=== PATIENT | female | born 1935 | race Caucasian/White ===

== ENCOUNTER 2017-05-15 01:07 | Emergency (ER) | payer MEDICARE, OTHER ==
[2017-05-15 01:25] VITALS: O2SAT 99
[2017-05-15 01:30] VITALS: BP 157/99
[2017-05-15] MEDS ORDERED: LIDOCAINE VISCOUS 2% SOLN 15ML UDC EXT ONE (04:30)
--- NOTE | 2017-05-15 07:37 | REP ---
Portable chest, 01:36 a.m., the patient sitting, single AP view, post intubation: The tip of the endotracheal tube appears to be in the hypopharynx. There are bilateral interstitial and alveolar infiltrates. No pleural effusions. Cardiac size is enlarged. Signed by Joseph Negrete MD 05/15/2017 07:29 A
== END 2017-05-15 04:14 | disposition expired ==
LOC: EDAGE 01:07 → M ED 01:07 → EDBD 01:07 → M ED 04:14
DX: I46.9 Cardiac arrest, cause unspecified (principal); R22.0 Localized swelling, mass and lump, head; R09.02 Hypoxemia; I50.9 Heart failure, unspecified